=== PATIENT | female | born 2000 | race Caucasian/White ===

== ENCOUNTER 2020-04-06 12:51 | Emergency (ER) | payer MEDICAID ==
[~2020-04-06] VITALS: Ht 157.5 cm; Wt 57.0 kg
[~2020-04-06 12:51] MED LIST: HYDR20TA; LEVO75TA
[2020-04-06 13:24] VITALS: BP 137/90
== END 2020-04-06 15:57 | disposition home or self-care (01) ==
LOC: ER 12:51
DX: L03.211 Cellulitis of face (principal); Z79.899 Other long term (current) drug therapy
CPT/HCPCS: 99283

== ENCOUNTER 2021-08-10 22:48 | Emergency (ER) | payer MEDICAID, MEDICARE ==
[~2021-08-10] VITALS: Ht 157.5 cm; Wt 57.0 kg
[2021-08-10] MEDS ORDERED: ONDANSETRON 4MG ODT PO STA (23:00)
[2021-08-10] MEDS ORDERED: ONDANSETRON HCL 4MG/2ML INJ IV STA (23:02)
[2021-08-10] MEDS ORDERED: SODIUM CHLORIDE 0.9% 1,000 ML IV ONE (23:15)
[2021-08-11] MEDS ORDERED: ONDANSETRON HCL 4MG/2ML INJ IV NR (03:30)
[2021-08-11] MEDS ORDERED: ACETAMINOPHEN 325MG TABLET PO ONE (03:30)
[2021-08-11 03:49] LABS: HEMATOCRIT. 42.9 % (36.0-48.0); HEMOGLOBIN. 14.2 g/dL (12.0-16.0); MEAN CORPUSCULAR HEMOGLOBIN 26.6 pg (28.0-32.0); MEAN CORPUSCULAR VOLUME 80.1 fL (81.0-99.0); MEAN PLATELET VOLUME 9.6 fl (7.4-10.4); PLATELET 315 x1000/uL (130-400); RED BLOOD CELL COUNT 5.36 mill/uL (4.2-5.4); RED CELL DISTRIBUTION WIDTH 14.2 % (11.6-14.6)
[2021-08-11 04:02] LABS: HCG SCREEN NEGATIVE
[2021-08-11 04:08] LABS: CLARITY URINE CLEAR (CLEAR); COLOR URINE YELLOW (YELLOW); KETONES URINE TRACE (NEGATIVE); LEUKOCYTE ESTERASE URINE TRACE (NEGATIVE); NITRITE URINE NEGATIVE (NEGATIVE); OCCULT BLOOD URINE TRACE (NEGATIVE); PROTEIN URINE 1+ (NEGATIVE); SPECIFIC GRAVITY URINE 1.021 (1.005-1.030); UROBILINOGEN URINE 0.2 E.U./dL (0.2-1.0)
[2021-08-11 04:26] LABS: PLATELET ESTIMATE NORMAL
[2021-08-11] MEDS ORDERED: CEFTRIAXONE 1 G PREMIX 50 ML IV ONE (04:30)
[2021-08-11] MEDS ORDERED: KETOROLAC 15MG/ML VIAL IV ONE (04:45)
[2021-08-11 05:06] LABS: CHLORIDE 105 mEq/L (98-107)
[2021-08-11 06:09] LABS: CHLORIDE 105 mEq/L (98-107)
[2021-08-11 14:46] VITALS: BP 114/91
== END 2021-08-11 15:28 | disposition short-term general hospital (02) ==
LOC: ER 22:48
DX: E86.0 Dehydration (principal); R11.2 Nausea with vomiting, unspecified; N39.0 Urinary tract infection, site not specified; Z98.890 Other specified postprocedural states; Z20.822 Contact with and (suspected) exposure to COVID-19
CPT/HCPCS: 36415; 71045; 80053; 81003; 81025; 83690; 84703; 85025; 87040; 87426; 93005; 96361; 96365; 96366; 96375; 99285; J0696; J1885; J2405; J7030

== ENCOUNTER 2023-05-06 00:38 | Emergency (ER) | payer MEDICAID, MEDICARE ==
[~2023-05-06] VITALS: Ht 160 cm; Wt 59.0 kg
[2023-05-06 01:00] VITALS: BP 122/80; PULSE 80; RESP 18; TEMP 98.3; O2SAT 99
[2023-05-06] MEDS ORDERED: OFLO5DRO4 LEFT EAR (01:49)
== END 2023-05-06 01:50 | disposition home or self-care (01) ==
LOC: ER 00:38
DX: H60.92 Unspecified otitis externa, left ear (principal)
CPT/HCPCS: 99283